=== PATIENT | female | born 1985 | race Caucasian/White ===

== ENCOUNTER 2017-03-31 23:28 | Inpatient (IN) | payer BC ==
[~2017-03-31] VITALS: Ht 162.6 cm; Wt 80.3 kg
[~2017-03-31 23:28] MED LIST: IBUP600 PO; OXYC1SOL5 PO; PRENCAP10 PO
[2017-03-31 23:30] VITALS: BP 130/80; PULSE 106; RESP 16; TEMP 98; O2SAT 99
[2017-04-01] MEDS ORDERED: SODIUM CHLOR 0.9% 1000 ML INJ 1,000 ML IV ONE ×2 (00:15→01:00)
[2017-04-01] MEDS ORDERED: VANCOMYCIN INJ 1,150 MG in SODIUM CHLOR 0.9% 250 ML INJ 250 ML IV ONE (00:15)
[2017-04-01] MEDS ORDERED: PIPERACIL-TAZO 3.375 GM PREMIX 50 ML IV ONE (00:15)
[2017-04-01] MEDS ORDERED: KETOROLAC TROMETHAMINE 30 MG/ML (IVP) VIAL IV PUSH ONE (00:15)
[2017-04-01 00:42] LABS: AUTOMATED NEUTROPHIL # 13.5 TH/MM3 (1.8-7.7); BASOPHIL % 0.2 % (0.0-2.0); EOSINOPHIL # 0.2 TH/MM3 (0-0.4); EOSINOPHIL % 1.2 % (0.0-4.0); HEMATOCRIT 32.4 % (35.0-46.0); HEMO FLAGS DIFF FINAL; LYMPH % 12.3 % (9.0-44.0); LYMPHOCYTE # 2.2 TH/MM3 (1.0-4.8); MEAN CELL VOLUME 79.5 FL (80.0-100.0); MEAN CORPUSCULAR HEMOGLOBIN 26.7 PG (27.0-34.0); MEAN CORPUSCULAR HGB CONC 33.6 % (32.0-36.0); NEUT % 77.3 % (16.0-70.0); PLATELET COUNT 403 TH/MM3 (150-450); RED BLOOD COUNT 4.08 MIL/MM3 (4.00-5.30); RED CELL DISTRIBUTION WIDTH 18.2 % (11.6-17.2); WHITE BLOOD COUNT 17.4 TH/MM3 (4.0-11.0)
[2017-04-01 00:51] LABS: APTT (PATIENT) 27.6 SEC (24.3-30.1); PROTHROMBIN TIME - PATIENT 11.2 SEC (9.8-11.6)
[2017-04-01 00:59] LABS: ANION GAP 8 MEQ/L (5-15); BICARBONATE 27.5 MEQ/L (21.0-32.0); BLOOD UREA NITROGEN 9 MG/DL (7-18); CHLORIDE 104 MEQ/L (98-107); GLOMERULAR FILTRATION RATE 68 ML/MIN (>89); POTASSIUM 3.7 MEQ/L (3.5-5.1); SODIUM (NA) 139 MEQ/L (136-145)
--- NOTE | 2017-04-01 01:01 | PD ---
HPI Chief Complaint: Skin Problem Time Seen by Provider: 00:02 Travel History International Travel<30 days: No Contact w/Intl Traveler<30days: No Traveled to known affect area: No History of Present Illness HPI 31yo F with PMH of MRSA presents to the ED with c/o worsening infection in right labia that is now spreading to the suprapubic region. Pt states it started like a pimple on the right labia and it was there for 1 week before it started draining. Pt's mother is a physician and started her on septra 2 days ago and pt states that since being on it, the wound has spread and gotten worst. +Fever of 101F today at 7pm and she took ibuprofen. Denies any n/v, chest pain, sob, abdominal pain, dysuria, hematuria or vaginal discharge. Said she had MRSA once before. PFSH Past Medical History Medical other: Yes (MRSA) ?: Not LMP: 03/24/17 Past Surgical History Surgical History: No Previous Surgery Section: Yes Social History Alcohol Use: No Tobacco Use: No Substance Use: No Allergies-Medications (Allergen,Severity, Reaction): Coded Allergies: Benadryl (Unverified Allergy, Severe, Anaphylaxis, 04/01/17) iv benadryl Dilaudid (Verified Allergy, Severe, Anaphylaxis, 04/01/17) Ciprofloxacin (Verified Allergy, Unknown, Anaphylaxis, 04/01/17) Reported Meds & Prescriptions Reported Meds & Active Scripts Active Review of Systems Except as stated in HPI: all other systems reviewed are Neg Physical Exam Narrative GENERAL: 31yo F in mild distress. SKIN: Focused skin assessment warm/dry. HEAD: Atraumatic. Normocephalic. EYES: Pupils equal and round. No scleral icterus. No injection or drainage. CARDIOVASCULAR: Regular rate and rhythm. No murmur appreciated. RESPIRATORY: No accessory muscle use. Clear to auscultation. Breath sounds equal bilaterally. GASTROINTESTINAL: Abdomen soft, non-tender, nondistended. +Erythematous streaking pubic bone No crepitus. : +Right labia that is indurated and tender to palpation. No fluctuance. MUSCULOSKELETAL: No obvious deformities. No clubbing. No cyanosis. No edema. NEUROLOGICAL: Awake and alert. No obvious cranial nerve deficits. Motor grossly within normal limits. Normal speech. PSYCHIATRIC: Appropriate mood and affect; insight and judgment normal. Data Data Last Documented VS Vital Signs Date Time Temp Pulse Resp B/P Pulse Ox O2 Delivery O2 Flow Rate FiO2 03/31/17 23:30 98.0 106 16 130/80 99 Orders Complete Blood Count With Diff (04/01/17 00:10) Basic Metabolic Panel (Bmp) (04/01/17 00:10) Prothrombin Time / Inr (Pt) (04/01/17 00:10) Act Partial Throm Time (Ptt) (04/01/17 00:10) Lactic Acid Sepsis Protocol (04/01/17 00:10) Blood Culture (04/01/17 00:10) Bhcg Screen Qualitative (04/01/17 00:10) Ketorolac Inj (Toradol Inj) (04/01/17 00:15) Vancomycin Inj (Vancomycin Inj) (04/01/17 00:15) Piperacil-Tazo 3.375 Gm Premix (Zosyn 3. (04/01/17 00:15) Sodium Chlor 0.9% 1000 Ml Inj (Ns 1000 M (04/01/17 00:15) Sodium Chlor 0.9% 1000 Ml Inj (Ns 1000 M (04/01/17 01:00) Ct Abd/Pel W Iv Contrast(Rout) (04/01/17 ) Iohexol 350 Inj (Omnipaque 350 Inj) (04/01/17 03:21) Admit Order (Ed Use Only) (04/01/17 03:38) Labs Laboratory Tests Test 04/01/17 00:20 White Blood Count 17.4 TH/MM3 Red Blood Count 4.08 MIL/MM3 Hemoglobin 10.9 GM/DL Hematocrit 32.4 % Mean Corpuscular Volume 79.5 FL Mean Corpuscular Hemoglobin 26.7 PG Mean Corpuscular Hemoglobin 33.6 % Concent Red Cell Distribution Width 18.2 % Platelet Count 403 TH/MM3 Mean Platelet Volume 7.2 FL Neutrophils (%) (Auto) 77.3 % Lymphocytes (%) (Auto) 12.3 % Monocytes (%) (Auto) 9.0 % Eosinophils (%) (Auto) 1.2 % Basophils (%) (Auto) 0.2 % Neutrophils # (Auto) 13.5 TH/MM3 Lymphocytes # (Auto) 2.2 TH/MM3 Monocytes # (Auto) 1.6 TH/MM3 Eosinophils # (Auto) 0.2 TH/MM3 Basophils # (Auto) 0.0 TH/MM3 CBC Comment DIFF FINAL Differential Comment Prothrombin Time 11.2 SEC Prothromb Time International 1.0 RATIO Ratio Activated Partial 27.6 SEC Thromboplast Time Sodium Level 139 MEQ/L Potassium Level 3.7 MEQ/L Chloride Level 104 MEQ/L Carbon Dioxide Level 27.5 MEQ/L Anion Gap 8 MEQ/L Blood Urea Nitrogen 9 MG/DL Creatinine 0.97 MG/DL Estimat Glomerular Filtration 68 ML/MIN Rate Random Glucose 115 MG/DL Lactic Acid Level 1.6 mmol/L Calcium Level 8.7 MG/DL Beta HCG, Qualitative LESS THAN 1 MIU/ML MDM Medical Decision Making Medical Screen Exam Complete: Yes Emergency Medical Condition: Yes Differential Diagnosis Vulvar Cellulitis vs. abscess vs. Ryan's gangrene Narrative Course 31yo F with right vulva infection that is spreading and worst on antibiotics. Pt is well appearing but wound is worsening quickly. Pt afebrile here but had fever at home and is mildly tachycardic here. Pt given NS IVF, vancomycin and zosyn. Also given toradol for pain. Labs reviewed, leukocytosis at 17.4. Normal lactic acid. CTa/p showed very edematous right vulva but no obvious abscess. Discussed with OB hospitalist Dr. Lal and accepted to his service. He recommends drainage of vulvar abscess in the OR. Critical Care Narrative Aggregate critical care time was 50 minutes. Time to perform other separately billable procedures was not included in the critical care time. My time did not include minutes spent treating any other patients simultaneously or on activities that did not directly contribute to the patient's treatment. The services I provided to this patient were to treat and/or prevent clinically significant deterioration that could result in: cardiovascular collapse or . I provided critical care services requiring my management, as noted below: Chart data review, documentation time, medication orders and management, vital sign assessments/reviewing monitor data, ordering and reviewing lab tests, ordering and interpreting/reviewing x- rays and diagnostic studies, care of the patient and discussion of the patient with the admitting physicians. Diagnosis Primary Impression: Sepsis Qualified Code: A41.9 - Sepsis, due to unspecified organism Admitting Information Admitting Physician Requests: Admit Rona Wen DO Apr 01, 2017 01:00
[2017-04-01 01:05] LABS: BHCG SCREEN QUALITATIVE LESS THAN 1 MIU/ML (0-5)
[2017-04-01] MEDS ORDERED: IOHEXOL 350 MG/ML 10 ML VIAL (for RAD DIAG) IV ONE (03:21)
--- NOTE | 2017-04-01 03:45 | RADRPT ---
EXAM DATE/TIME: 04/01/2017 03:16 [facility] COMPARISON: No previous studies available for comparison. INDICATIONS : Swelling to right labia. Fever. Evaluate for abscess. IV CONTRAST: 97 cc Omnipaque 350 (iohexol) IV ORAL CONTRAST: No oral contrast ingested. RADIATION DOSE: 9.65 CTDIvol (mGy) MEDICAL HISTORY : MRSA. SURGICAL HISTORY : section. ENCOUNTER: Initial ACUITY: 2 weeks PAIN SCALE: 7/10 LOCATION: Right pelvis TECHNIQUE: Volumetric scanning of the abdomen and pelvis was performed. Using automated exposure control and ad justment of the mA and/or kV according to patient size, radiation dose was kept as low as reasonably achievable to obtain optimal diagnostic quality images. FINDINGS: LOWER LUNGS: The visualized lower lungs are clear. LIVER: Homogeneous density without lesion. There is no dilation of the biliary tree. No calcified gallston es. SPLEEN: Normal size without lesion. PANCREAS: Within normal limits. KIDNEYS: Normal in size and shape. There is no mass, stone or hydronephrosis. ADRENAL GLANDS: Within normal limits. VASCULAR: There is no aortic aneurysm. BOWEL/MESENTERY: The stomach, small bowel, and colon demonstrate no acute abnormality. There is no free intraperitone al air or fluid. ABDOMINAL WALL: Within normal limits. There is marked swelling of the right labia without any deep abscess or drainab le fluid collection other than very edematous tissue just underneath the skin. RETROPERITONEUM: There is no lymphadenopathy. BLADDER: No wall thickening or mass. REPRODUCTIVE: Within normal limits. IUD in place INGUINAL: There is no lymphadenopathy or hernia. MUSCULOSKELETAL: Within normal limits for patient age. CONCLUSION: Very edematous skin and soft tissue around the right labia without any deep collections or obvious ab scess. Few small lymph nodes in the right inguinal region Karthik Perales MD on April 01, 2017 at 3:42 Board Certified Radiologist. This report was verified electronically.
[2017-04-01] MEDS ORDERED: MORPHINE SULFATE 4 MG/ML INJ IV PRN (04:00)
[2017-04-01] MEDS ORDERED: SODIUM CHLORIDE 0.9% FLUSH 5 ML FLUSH IV FLUSH PRN (04:00)
[2017-04-01] MEDS ORDERED: ACETAMINOPHEN 325 MG TAB PO PRN (04:00)
[2017-04-01] MEDS ORDERED: ONDANSETRON HCL 4 MG/2 ML VIAL IV PRN (04:00)
--- NOTE | 2017-04-01 04:04 | HHI.HP ---
HPI Chief Complaint Vulvar pain and swelling Date Seen: Apr 01, 2017 Travel History International Travel<30 Days: No Contact w/Intl Traveler<30Days: No Known Affected Area: No History of Present Illness HPI The patient is 31-year-old white female previous who presents with increasing pain in the right labia and vulvar area, states she states that she thought she had an ingrown hair there about a week ago and didn't think anything about that then within a few days started to become comfortable as well and then he just in the last couple days is really swollen a lot become a lot more tender. Patient's mother is a physician and she called her in some Sept to take and the sits mass and she says that really hasn't helped much. She had a temperature 101 deg today and states that this area was spontaneously draining some pus fluid when she can squeezed one and some of the last day or 2 Para: 1 : 1 History Obstetric History Obstetric History [address] Desir Past Surgical History Narrative Surgical 1 2 ankle surgeries is a teenager Tonsillectomy Family History Family History: Negative Social History Alcohol Use: No Tobacco Use: No Substance Abuse: No Allergies-Medications (Allergen,Severity, Reaction): Coded Allergies: Benadryl (Unverified Allergy, Severe, Anaphylaxis, 04/01/17) iv benadryl Dilaudid (Verified Allergy, Severe, Anaphylaxis, 04/01/17) Ciprofloxacin (Verified Allergy, Unknown, Anaphylaxis, 04/01/17) Review of Systems General / Constitutional: No: Fever, Weight Gain, Chills, Other Eyes: No: Diploplia, Blurred Vision, Visual changes, Pain, Photophobia HENT: No: Headaches, Vertigo, Lightheadedness Cardiovascular: No: Irregular Rhythm, Chest Pain or Discomfort, Palpitations, Tachycardia, Syncope, Varicosities, Edema, Cyanosis Respiratory: No: Cough, Short of Breath, Other Gastrointestinal: No: Nausea, Vomiting, Diarrhea Genitourinary: No: Decreased Urinary Output, Oliguria Musculoskeletal: No: Limited ROM, Weakness, Cramping, Edema, Pain Skin: No Rash, No Itching, No Dryness, No Lumps, No Change in Pigmentation, No Change in Nails, No Alopecia, No Lesions Neurologic: No: Weakness, Dizziness, Syncope, Focal Abnormalities, Coordination Problem, Headache, Slurred Speech, Seizures Psychiatric: No: Depression, Suicidal Ideations, Homicidal Ideation Endocrine: No: Heat Intolerance, Cold Intolerance, Polydipsia, Polyuria, Other Physical Exam Vital Signs Date Time Temp Pulse Resp B/P Pulse Ox O2 Delivery O2 Flow Rate FiO2 03/31/17 23:30 98.0 106 16 130/80 99 Narrative GENERAL: Well-nourished, well-developed patient. SKIN: Warm and dry. HEAD: Normocephalic and atraumatic. EYES: No scleral icterus. No injection or drainage. ENT: No nasal drainage noted. Mucous membranes pink. Airway patent. NECK: Supple, trachea midline. No JVD. CARDIOVASCULAR: Regular rate and rhythm without murmurs, gallops, or rubs. RESPIRATORY: Breath sounds equal bilaterally. No accessory muscle use. BREASTS: Bilateral exam showed no masses , no retractions, no nipple discharge. ABDOMEN/GI: Abdomen soft, non-tender, bowel sounds present, no rebound, no guarding Gravid to [-] weeks size Fundal Height: [-] GENITOURINARY: External Genitalia: Right labia vulvar markedly enlarged erythematous tender indurated Remainder pelvic exam deferred due to the pain related to vulvar problem EXTREMITIES: No cyanosis or edema. BACK: Nontender without obvious deformity. No CVA tenderness. NEUROLOGICAL: Awake and alert. Motor and sensory grossly within normal limits. Five out of 5 muscle strength in all muscle groups. Normal speech. Data Data Orders Complete Blood Count With Diff (04/01/17 00:10) Basic Metabolic Panel (Bmp) (04/01/17 00:10) Prothrombin Time / Inr (Pt) (04/01/17 00:10) Act Partial Throm Time (Ptt) (04/01/17 00:10) Lactic Acid Sepsis Protocol (04/01/17 00:10) Blood Culture (04/01/17 00:10) Bhcg Screen Qualitative (04/01/17 00:10) Ketorolac Inj (Toradol Inj) (04/01/17 00:15) Vancomycin Inj (Vancomycin Inj) (04/01/17 00:15) Piperacil-Tazo 3.375 Gm Premix (Zosyn 3. (04/01/17 00:15) Sodium Chlor 0.9% 1000 Ml Inj (Ns 1000 M (04/01/17 00:15) Sodium Chlor 0.9% 1000 Ml Inj (Ns 1000 M (04/01/17 01:00) Ct Abd/Pel W Iv Contrast(Rout) (04/01/17 ) Iohexol 350 Inj (Omnipaque 350 Inj) (04/01/17 03:21) Admit Order (Ed Use Only) (04/01/17 03:38) Labs CT scan of the area shows what appears to be an abscess with internal fluid collection and enlargement of the area of the right vulva and labia Laboratory Tests Test 04/01/17 00:20 White Blood Count 17.4 Red Blood Count 4.08 Hemoglobin 10.9 Hematocrit 32.4 Mean Corpuscular Volume 79.5 Mean Corpuscular Hemoglobin 26.7 Mean Corpuscular Hemoglobin 33.6 Concent Red Cell Distribution Width 18.2 Platelet Count 403 Mean Platelet Volume 7.2 Neutrophils (%) (Auto) 77.3 Lymphocytes (%) (Auto) 12.3 Monocytes (%) (Auto) 9.0 Eosinophils (%) (Auto) 1.2 Basophils (%) (Auto) 0.2 Neutrophils # (Auto) 13.5 Lymphocytes # (Auto) 2.2 Monocytes # (Auto) 1.6 Eosinophils # (Auto) 0.2 Basophils # (Auto) 0.0 CBC Comment DIFF FINAL Differential Comment Prothrombin Time 11.2 Prothromb Time International 1.0 Ratio Activated Partial 27.6 Thromboplast Time Sodium Level 139 Potassium Level 3.7 Chloride Level 104 Carbon Dioxide Level 27.5 Anion Gap 8 Blood Urea Nitrogen 9 Creatinine 0.97 Estimat Glomerular Filtration 68 Rate Random Glucose 115 Lactic Acid Level 1.6 Calcium Level 8.7 Beta HCG, Qualitative LESS THAN 1 Date/Time Procedure Status Source Growth 04/01/17 00:20 Aerobic Blood Culture Received Blood Peripheral Pending 04/01/17 00:20 Anaerobic Blood Culture Received Blood Peripheral Pending Assessment/Plan Assessment and Plan Right vulvar and labial abscess, plan to place patient on hospital of IV antibiotics of vancomycin and Zosyn and then later today we'll have the ENDING MACHINE OPERATOR doctor concrete grinder operator to take the patient to operating room for I&D of the abscess Todd Naqvi II, MD Apr 01, 2017 04:04
[2017-04-01] MEDS: LACTATED RINGER'S 1000 ML INJ 1,000 ML IV SCH ×3 (05:16→21:27)
[2017-04-01] MEDS: ACETAMINOPHEN 1000 MG/100 ML VIAL IV SCH ×4 (05:16→21:24)
[2017-04-01 05:36] VITALS: BP 113/66; PULSE 96; RESP 16; TEMP 98.4; O2SAT 98
[2017-04-01] MEDS: KETOROLAC TROMETHAMINE 60 MG/2 ML (IM) VIAL IM PRN (06:11)
[2017-04-01 07:30] VITALS: BP 117/53; PULSE 95; RESP 20; TEMP 98.3; O2SAT 99
[2017-04-01] MEDS: ENOXAPARIN SODIUM 40 MG/0.4 ML SYRINGE SQ SCH (09:00)
[2017-04-01] MEDS: SODIUM CHLORIDE 0.9% FLUSH 5 ML FLUSH IV FLUSH SCH ×2 (09:00→21:00)
[2017-04-01] MEDS: PIPERACIL-TAZO 3.375 GM PREMIX 50 ML IV SCH ×3 (10:02→23:37)
[2017-04-01] MEDS ORDERED: FAMOTIDINE 20 MG/2 ML VIAL ONE (11:05)
[2017-04-01] MEDS ORDERED: MIDAZOLAM HCL 2 MG/2 ML VIAL ONE (11:05)
[2017-04-01] MEDS ORDERED: BUPIVACAINE HCL PF 0.5% 30 ML VIAL ONE (11:41)
[2017-04-01] MEDS ORDERED: DO NOT ADM ANY ANTICOAGULANT DRUGS PRN (12:00)
[2017-04-01] MEDS ORDERED: oxyCODONE/ACETAMINOPHEN 5 MG/325 MG TAB PO PRN (12:00)
[2017-04-01] MEDS ORDERED: KETOROLAC TROMETHAMINE 60 MG/2 ML (IM) VIAL IM ONE (12:00)
[2017-04-01] MEDS ORDERED: ONDANSETRON HCL 4 MG/2 ML VIAL IV PUSH PRN (12:00)
[2017-04-01] MEDS ORDERED: PROPOFOL 200 MG/20 ML AMP IV ONE (12:00)
[2017-04-01] MEDS ORDERED: ONDANSETRON HCL 4 MG/2 ML VIAL IV PUSH ONE (12:00)
--- NOTE | 2017-04-01 13:33 | MP ---
cc: AJ BARAHONA M.D., STEPHEN J. M.D. DATE OF SURGERY 04/01/2017 PREOPERATIVE DIAGNOSIS Right labial abscess/cellulitis. PROCEDURE Exam under anesthesia, incision and drainage of right labial abscess. POSTOPERATIVE DIAGNOSIS Exam under anesthesia, incision and drainage of right labial abscess. SURGEON MD Frantz ANESTHESIA General with LMA and local infiltration of 0.25% percent plain Marcaine x 10 cc. OPERATIVE FINDINGS The patient had a large edematous right labia with his some small pockets of fluctuance, superficially one on the right lateral aspect posterior to the labia major and then in the mid portion of the labia. There is no defined significant pocket of purulence. Cultures were taken of the drainage. INDICATIONS FOR PROCEDURE The patient presented to the emergency department with increasing pain and swelling of the right labia. The patient had elevated white blood cell count and low grade fever. CT scan revealed a markedly edematous and indurated right labia. No specific focal abscess cavity was identified. Physical exam revealed two superficial areas that were consistent with purulence and recommendation was to proceed with incision and drainage and exam under anesthesia. The patient has been on vancomycin and piperacillin /tazobactam for the last 12 hours. PROCEDURE The patient was taken to the operating room n stable condition, underwent general anesthesia with LMA placement. She was carefully positioned in dorsolithotomy position using candy-cane stirrups. Sequentials placed on lower extremities. She was prepped and draped. A time-out was then conducted and agreed by all present in the room. Exam revealed a large edematous right labia. There was a focal area of purulence on the posterior lower lateral aspect which was opened with a #11 blade. A small amount of purulence was expressed and this was cultured and sent for anaerobic and aerobic cultures. The midportion of the labia was then incised with a #11 blade and significant watery drainage was expressed but no obvious purulence. Bleeding was minimal. The edges of the incision site were injected with 0.25% percent plain Marcaine at the completion of case. Irrigation of the labia with copious normal saline was conducted and exploration of the wound sites were conducted revealing no significant purulence. At the completion of the case there was slight oozing from each incision site. A dressing was applied using a peripad. The patient was extubated, taken to recovery room on room air. The final count was correct. MD GELY Willis/JACY /12:13 PM /1:20 PM
[2017-04-01] MEDS: VANCOMYCIN INJ 1,500 MG in SODIUM CHLORID 0.9% 500 ML INJ 500 ML IV SCH (15:14)
[2017-04-01 15:50] VITALS: BP 123/63; PULSE 97; RESP 20; TEMP 98.3; O2SAT 99
[2017-04-01] MEDS: oxyCODONE/ACETAMINOPHEN 5 MG/325 MG TAB PO PRN ×2 (16:48→23:56)
[2017-04-01 16:50] VITALS: TEMP 99.7
[2017-04-01 20:00] VITALS: BP 115/62; PULSE 103; RESP 21; TEMP 98.8; O2SAT 99
[2017-04-02] VITALS: BP 116/53; PULSE 89; RESP 20; TEMP 97.1; O2SAT 98
[2017-04-02] MEDS: VANCOMYCIN INJ 1,500 MG in SODIUM CHLORID 0.9% 500 ML INJ 500 ML IV SCH ×2 (03:04→15:03)
[2017-04-02] MEDS: ACETAMINOPHEN 1000 MG/100 ML VIAL IV SCH ×3 (03:07→21:51)
[2017-04-02 04:00] VITALS: BP 98/53; PULSE 79; RESP 19; TEMP 97.3; O2SAT 98
[2017-04-02] MEDS: LACTATED RINGER'S 1000 ML INJ 1,000 ML IV SCH ×3 (04:13→23:45)
[2017-04-02 06:48] LABS: AUTOMATED NEUTROPHIL # 9.8 TH/MM3 (1.8-7.7); BASOPHIL % 0.2 % (0.0-2.0); EOSINOPHIL # 0.2 TH/MM3 (0-0.4); EOSINOPHIL % 1.6 % (0.0-4.0); HEMATOCRIT 26.8 % (35.0-46.0); HEMO FLAGS DIFF FINAL; LYMPH % 13.5 % (9.0-44.0); LYMPHOCYTE # 1.7 TH/MM3 (1.0-4.8); MEAN CELL VOLUME 80.7 FL (80.0-100.0); MEAN CORPUSCULAR HEMOGLOBIN 26.5 PG (27.0-34.0); MEAN CORPUSCULAR HGB CONC 32.8 % (32.0-36.0); MONO % 7.6 % (0.0-8.0); NEUT % 77.1 % (16.0-70.0); PLATELET COUNT 297 TH/MM3 (150-450); RED BLOOD COUNT 3.32 MIL/MM3 (4.00-5.30); RED CELL DISTRIBUTION WIDTH 18.7 % (11.6-17.2); WHITE BLOOD COUNT 12.8 TH/MM3 (4.0-11.0)
[2017-04-02 07:31] LABS: BICARBONATE 26.9 MEQ/L (21.0-32.0); POTASSIUM 3.8 MEQ/L (3.5-5.1)
[2017-04-02 07:50] VITALS: BP 119/65; PULSE 90; RESP 20; TEMP 98; O2SAT 97
--- NOTE | 2017-04-02 08:05 | HHI.OB ---
Subjective Post Operative Day: 1 Remarks pt OOB , urinating ok, on IV piperacillin/vanco, afebrile, MRSA neg Objective Vitals/I&O Vital Signs Date Time Temp Pulse Resp B/P Pulse Ox O2 Delivery O2 Flow Rate FiO2 04/02/17 04:00 97.3 79 19 98/53 98 04/02/17 00:00 97.1 89 20 116/53 98 04/01/17 20:00 98.8 103 21 115/62 99 04/01/17 16:50 99.7 04/01/17 15:50 98.3 97 20 123/63 99 04/01/17 13:25 98.5 81 16 129/68 98 Room Air 04/01/17 13:15 80 16 121/60 98 Room Air 04/01/17 13:00 82 15 128/63 97 Room Air 04/01/17 12:45 87 15 121/59 100 Nasal Cannula 2 04/01/17 12:30 89 14 122/57 99 Nasal Cannula 2 04/01/17 12:15 92 14 118/59 100 Nasal Cannula 3 04/01/17 12:00 97.6 100 12 120/57 98 Nasal Cannula 3 Result Diagram: 04/02/1759 04/02/17 0559 Objective Remarks GENERAL: Well-nourished, well-developed patient. CARDIOVASCULAR: Regular rate and rhythm without murmurs, gallops, or rubs. RESPIRATORY: Breath sounds equal bilaterally. No accessory muscle use. ABDOMEN/GI: Abdomen soft, non-tender, bowel sounds present. GENITOURINARY: Light bleeding., rt labia majora swelling, erythema, no fluctuance, no LN EXTREMITIES: No cyanosis or edema, non-tender, without signs of DVT. Medications and IVs Current Medications Medications (Trade) Dose Ordered Sig/Gurmeet Route Start Time Stop Time Status Last Admin (NS Flush) 2 ml UNSCH PRN IV FLUSH 04/01/17 04:00 (NS Flush) 2 ml BID IV FLUSH 04/01/17 09:00 04/01/17 21:00 (Toradol Inj) 30 mg Q6H PRN IM 04/01/17 04:00 04/06/17 03:59 04/01/17 06:11 (Zofran Inj) 4 mg Q6H PRN IV 04/01/17 04:00 Enoxaparin Sodium 40 mg 40 mg Q24H SQ 04/01/17 09:00 Piperacillin Sod/ Tazobactam Sod 50 ml @ 100 mls/hr Q8H IV 04/01/17 08:00 04/01/17 23:37 Vancomycin HCl 1500 mg/Sodium Chloride 515 ml @ 257.5 mls/ hr Q12H IV 04/01/17 14:00 04/02/17 03:04 (Lr 1000 ml Inj) 1,000 ml @ 115 mls/hr Q8H42M IV 04/01/17 04:15 04/01/17 12:36 (Ofirmev Inj) 1,000 mg Q6H IV 04/01/17 04:00 04/02/17 03:07 (Percocet 5-325 Mg) 1 tab Q4H PRN PO 04/01/17 12:00 04/01/17 23:56 (Percocet 5-325 Mg) 2 tab Q4H PRN PO 04/01/17 12:00 Miscellaneous Information ALL NURSING DEPARTME... UNSCH PRN .XX 04/01/17 12:00 04/02/17 11:59 Assessment/Plan Assessment and Plan Right vulvar and labial abscess, s/p I&D POD #1 continue IV antibx one more day, may shower sitz baths at home Discharge Planning in am Attending Attestation pt seen by Jana Perry MD Apr 02, 2017 08:05
[2017-04-02] MEDS: oxyCODONE/ACETAMINOPHEN 5 MG/325 MG TAB PO PRN ×3 (08:20→22:57)
[2017-04-02] MEDS: PIPERACIL-TAZO 3.375 GM PREMIX 50 ML IV SCH ×2 (08:20→20:00)
[2017-04-02] MEDS: SODIUM CHLORIDE 0.9% FLUSH 5 ML FLUSH IV FLUSH SCH ×2 (09:00→21:00)
[2017-04-02] MEDS: ENOXAPARIN SODIUM 40 MG/0.4 ML SYRINGE SQ SCH (09:00)
[2017-04-02 11:30] VITALS: BP 121/72; PULSE 86; RESP 20; TEMP 96.9; O2SAT 98
[2017-04-02 15:50] VITALS: BP 133/92; PULSE 102; RESP 20; TEMP 98.2; O2SAT 100
[2017-04-02] MEDS ORDERED: VANCOMYCIN INJ 1,500 MG in SODIUM CHLORID 0.9% 500 ML INJ 500 ML IV SCH (18:00)
[2017-04-02 20:00] VITALS: BP 130/58; PULSE 88; RESP 20; TEMP 96.3; O2SAT 100
[2017-04-03] VITALS: BP 107/55; PULSE 80; RESP 20; TEMP 96.7; O2SAT 97
[2017-04-03 04:00] VITALS: BP 111/53; PULSE 81; RESP 20; TEMP 96.2; O2SAT 98
[2017-04-03] MEDS: PIPERACIL-TAZO 3.375 GM PREMIX 50 ML IV SCH ×3 (04:25→20:29)
[2017-04-03] MEDS: ACETAMINOPHEN 1000 MG/100 ML VIAL IV SCH ×5 (04:27→21:04)
[2017-04-03] MEDS: oxyCODONE/ACETAMINOPHEN 5 MG/325 MG TAB PO PRN ×2 (04:30→13:50)
[2017-04-03] MEDS: VANCOMYCIN INJ 1,500 MG in SODIUM CHLORID 0.9% 500 ML INJ 500 ML IV SCH ×2 (05:26→18:00)
[2017-04-03 06:23] LABS: AUTOMATED NEUTROPHIL # 6.4 TH/MM3 (1.8-7.7); BASOPHIL % 0.3 % (0.0-2.0); EOSINOPHIL # 0.2 TH/MM3 (0-0.4); EOSINOPHIL % 2.4 % (0.0-4.0); HEMATOCRIT 27.6 % (35.0-46.0); HEMO FLAGS DIFF FINAL; LYMPH % 21.2 % (9.0-44.0); MEAN CELL VOLUME 80.3 FL (80.0-100.0); MEAN CORPUSCULAR HEMOGLOBIN 26.6 PG (27.0-34.0); MEAN CORPUSCULAR HGB CONC 33.2 % (32.0-36.0); NEUT % 69.1 % (16.0-70.0); PLATELET COUNT 358 TH/MM3 (150-450); RED BLOOD COUNT 3.44 MIL/MM3 (4.00-5.30); WHITE BLOOD COUNT 9.2 TH/MM3 (4.0-11.0)
[2017-04-03 08:00] VITALS: BP 109/56; PULSE 72; RESP 16; TEMP 97.3; O2SAT 98
[2017-04-03] MEDS: LACTATED RINGER'S 1000 ML INJ 1,000 ML IV SCH ×2 (08:27→15:21)
--- NOTE | 2017-04-03 08:43 | HHI.PR ---
TELECOMMUNICATIONS ENGINEER Note Note Laboratory Tests Test 04/01/17 04/02/17 04/03/17 00:20 05:59 05:47 White Blood Count 17.4 TH/MM3 12.8 TH/MM3 (4.0-11.0) (4.0-11.0) Hemoglobin 10.9 GM/DL 8.8 GM/DL 9.2 GM/DL (11.6-15.3) (11.6-15.3) (11.6-15.3) Hematocrit 32.4 % 26.8 % 27.6 % (35.0-46.0) (35.0-46.0) (35.0-46.0) Mean Corpuscular Volume 79.5 FL (80.0-100.0) Mean Corpuscular Hemoglobin 26.7 PG 26.5 PG 26.6 PG (27.0-34.0) (27.0-34.0) (27.0-34.0) Red Cell Distribution Width 18.2 % 18.7 % 18.0 % (11.6-17.2) (11.6-17.2) (11.6-17.2) Neutrophils (%) (Auto) 77.3 % 77.1 % (16.0-70.0) (16.0-70.0) Monocytes (%) (Auto) 9.0 % (0.0-8.0) Neutrophils # (Auto) 13.5 TH/MM3 9.8 TH/MM3 (1.8-7.7) (1.8-7.7) Monocytes # (Auto) 1.6 TH/MM3 1.0 TH/MM3 (0-0.9) (0-0.9) Estimat Glomerular Filtration 68 ML/MIN (>89) Rate Random Glucose 115 MG/DL (74-106) Red Blood Count 3.32 MIL/MM3 3.44 MIL/MM3 (4.00-5.30) (4.00-5.30) Chloride Level 108 MEQ/L (98-107) Blood Urea Nitrogen 5 MG/DL (7-18) Calcium Level 7.5 MG/DL (8.5-10.1) HD#3, MRSA positive right labial abscess/cellulitis. Pain is manageable ,Afebrile, less swelling Vital Signs Date Time Temp Pulse Resp B/P Pulse Ox O2 Delivery O2 Flow Rate FiO2 04/03/17 08:00 97.3 72 16 109/56 98 04/03/17 05:47 19 04/03/17 04:59 20 04/03/17 04:00 96.2 81 20 111/53 98 04/03/17 00:00 96.7 80 20 107/55 97 04/02/17 20:00 96.3 88 20 130/58 100 04/02/17 15:50 98.2 102 20 133/92 100 04/02/17 11:30 96.9 86 20 121/72 98 EXAM: AVSS. Lungs : CTA Abd. : soft ,nt, Pelvic: less erythema and induration from yesterday,no drainage. Ext: no C/C/E. A+P: 1. MRSA positive labial cellulitis, TRENA/sensitivities are pending. Normal WBC, afebrile. patient is improving but is aware of the need for continous IV vancomycin. Plan for discharge possibly thursday on Bactrim DS x 14 days. Case d/w Dr Oliveros who is covering this weekend Karthik Landry MD Apr 03, 2017 08:43
[2017-04-03] MEDS: SODIUM CHLORIDE 0.9% FLUSH 5 ML FLUSH IV FLUSH SCH ×2 (09:00→21:00)
[2017-04-03 12:00] VITALS: BP 116/76; PULSE 78; RESP 16; TEMP 96.9; O2SAT 99
[2017-04-03 16:00] VITALS: BP 119/81; PULSE 79; RESP 18; TEMP 98; O2SAT 98
[2017-04-03] MEDS: KETOROLAC TROMETHAMINE 60 MG/2 ML (IM) VIAL IM PRN (16:01)
[2017-04-03 20:04] VITALS: BP 118/66; PULSE 69; RESP 16; TEMP 97.4; O2SAT 99
[2017-04-04] VITALS: BP 113/59; PULSE 63; RESP 15; TEMP 96.5; O2SAT 99
[2017-04-04] MEDS: LACTATED RINGER'S 1000 ML INJ 1,000 ML IV SCH ×2 (01:51→19:15)
[2017-04-04 04:15] VITALS: BP 109/57; PULSE 78; RESP 16; TEMP 96.6; O2SAT 99
[2017-04-04] MEDS: PIPERACIL-TAZO 3.375 GM PREMIX 50 ML IV SCH ×3 (04:24→21:54)
[2017-04-04] MEDS: oxyCODONE/ACETAMINOPHEN 5 MG/325 MG TAB PO PRN ×2 (04:24→14:39)
[2017-04-04] MEDS: ACETAMINOPHEN 1000 MG/100 ML VIAL IV SCH ×4 (04:28→21:52)
[2017-04-04] MEDS: VANCOMYCIN INJ 1,500 MG in SODIUM CHLORID 0.9% 500 ML INJ 500 ML IV SCH ×2 (05:39→16:54)
[2017-04-04] MEDS: SODIUM CHLORIDE 0.9% FLUSH 5 ML FLUSH IV FLUSH SCH ×2 (09:00→21:00)
[2017-04-04 12:00] VITALS: BP 106/61; PULSE 76; RESP 15; TEMP 96.8; O2SAT 99
[2017-04-04 16:00] VITALS: BP 114/59; PULSE 83; RESP 15; TEMP 97; O2SAT 98
--- NOTE | 2017-04-04 16:07 | HHI.PR ---
Subjective Remarks Doing well , swelling is down but still with significnat pain Can I take motrin I do not like the percocet Objective Vital Signs Date Time Temp Pulse Resp B/P Pulse Ox O2 Delivery O2 Flow Rate FiO2 04/04/17 12:00 96.8 76 15 106/61 99 04/04/17 05:08 18 04/04/17 05:08 18 04/04/17 04:15 96.6 78 16 109/57 99 04/04/17 00:00 96.5 63 15 113/59 99 04/03/17 20:04 97.4 69 16 118/66 99 I/O 04/03/17 04/03/17 04/03/17 04/04/17 04/04/17 04/04/17 07:00 15:00 23:00 07:00 15:00 23:00 Intake Total 152 ml 720 ml 720 ml 480 ml Balance 152 ml 720 ml 720 ml 480 ml Intake Oral 720 ml 720 ml 480 ml IV Total 152 ml # Voids 1 3 4 # Bowel Movements 0 Result Diagram: 04/03/17 0547 04/02/17 0559 Objective Remarks Chest is clear CV RRR Abd is soft and NT. Pelvic...Right vulva is hard and swollen and quite tender. Not draining at all Ext no CCE Assessment and Plan Assessment and Plan Right labial abscess/cellulitis with MRSA Will continue both Abs now as it is not improving as quickly as I would expect. The bactrim her mom ordered should have taken care of this as it is sensitive to bactrim so I wonder about her immune status. This problem developed quickly on the bactrim which I would not expect. Will check a FBS and HIV. Discussed breifly with ID and will continue the IV Abs for several more days and will also put warm soaks to vulva. Anemia.. will continue the Fe. Kati Oliveros MD Apr 04, 2017 16:07
[2017-04-04] MEDS ORDERED: KETOROLAC TROMETHAMINE 30 MG/ML (IVP) VIAL IV PUSH ONE (17:45)
[2017-04-04] MEDS: KETOROLAC TROMETHAMINE 60 MG/2 ML (IM) VIAL IM PRN (18:22)
[2017-04-04 20:00] VITALS: BP 115/69; PULSE 86; RESP 18; TEMP 97; O2SAT 98
[2017-04-04] MEDS: IBUPROFEN 600 MG TAB PO SCH (21:53)
[2017-04-05] VITALS: BP 106/70; PULSE 72; RESP 17; TEMP 97.8; O2SAT 99
[2017-04-05] MEDS: LACTATED RINGER'S 1000 ML INJ 1,000 ML IV SCH ×3 (03:57→20:39)
[2017-04-05 04:00] VITALS: BP 105/55; PULSE 64; RESP 18; TEMP 97; O2SAT 97
[2017-04-05] MEDS: PIPERACIL-TAZO 3.375 GM PREMIX 50 ML IV SCH ×3 (04:21→20:37)
[2017-04-05] MEDS: ACETAMINOPHEN 1000 MG/100 ML VIAL IV SCH ×4 (04:22→20:38)
[2017-04-05] MEDS: VANCOMYCIN INJ 1,500 MG in SODIUM CHLORID 0.9% 500 ML INJ 500 ML IV SCH ×2 (05:35→17:59)
[2017-04-05] MEDS: IBUPROFEN 600 MG TAB PO SCH ×3 (05:56→20:39)
[2017-04-05] MEDS: SODIUM CHLORIDE 0.9% FLUSH 5 ML FLUSH IV FLUSH SCH ×2 (09:00→20:38)
[2017-04-05 09:30] VITALS: BP 111/67; PULSE 79; RESP 16; TEMP 96.2; O2SAT 99
[2017-04-05 13:00] VITALS: BP 110/59; PULSE 71; RESP 15; TEMP 96.1; O2SAT 99
[2017-04-05 16:00] VITALS: BP 125/71; PULSE 74; RESP 16; O2SAT 97
--- NOTE | 2017-04-05 19:36 | HHI.PR ---
Subjective Remarks Doing better today. Pain is less. How long do I have to stay?? Objective Vital Signs Date Time Temp Pulse Resp B/P Pulse Ox O2 Delivery O2 Flow Rate FiO2 04/05/17 16:00 74 16 125/71 97 04/05/17 13:00 96.1 71 15 110/59 99 04/05/17 09:30 96.2 79 16 111/67 99 04/05/17 05:51 19 04/05/17 04:00 97.0 64 18 105/55 97 04/05/17 00:00 97.8 72 17 106/70 99 04/04/17 23:45 19 04/04/17 20:00 97.0 86 18 115/69 98 I/O 04/04/17 04/04/17 04/04/17 04/05/17 04/05/17 04/05/17 07:00 15:00 23:00 07:00 15:00 23:00 Intake Total 720 ml 480 ml 480 ml 654 ml 1000 ml Balance 720 ml 480 ml 480 ml 654 ml 1000 ml Intake Oral 720 ml 480 ml 480 ml 480 ml 1000 ml IV Total 174 ml # Voids 3 4 2 1 4 # Bowel Movements 0 0 0 Result Diagram: 04/03/17 0547 04/02/17 0559 Objective Remarks Abd is soft and NT. Pelvic...Right vulva is lesss hard, swollen and tender. Not draining at all. She has a warm pad there. Ext no CCE Assessment and Plan Assessment and Plan Right labial abscess/cellulitis with MRSA Will continue both Abs now as it is not improving as quickly as I would expect. The hemoglobin A1C and HIV labs are pending This problem developed quickly on the bactrim which I would not expect. Discussed briefly with ID and will continue the IV Abs for several more days and will also put warm soaks to vulva. The warm soaks seem to be helping the area is not as indurated as yesterday. Anemia.. will continue the Fe. I would not use venofer while the infection is active. Kati Oliveros MD Apr 05, 2017 19:35
--- NOTE | 2017-04-05 19:47 | HHI.PR ---
Subjective Remarks Having a headache, maybe from the vancomycin. She takes Fioricet at home. Objective Vital Signs Date Time Temp Pulse Resp B/P Pulse Ox O2 Delivery O2 Flow Rate FiO2 04/05/17 16:00 74 16 125/71 97 04/05/17 13:00 96.1 71 15 110/59 99 04/05/17 09:30 96.2 79 16 111/67 99 04/05/17 05:51 19 04/05/17 04:00 97.0 64 18 105/55 97 04/05/17 00:00 97.8 72 17 106/70 99 04/04/17 23:45 19 04/04/17 20:00 97.0 86 18 115/69 98 I/O 04/04/17 04/04/17 04/04/17 04/05/17 04/05/17 04/05/17 07:00 15:00 23:00 07:00 15:00 23:00 Intake Total 720 ml 480 ml 480 ml 654 ml 1000 ml Balance 720 ml 480 ml 480 ml 654 ml 1000 ml Intake Oral 720 ml 480 ml 480 ml 480 ml 1000 ml IV Total 174 ml # Voids 3 4 2 1 4 # Bowel Movements 0 0 0 Result Diagram: 04/03/17 0547 04/02/17 0559 Assessment and Plan Assessment and Plan Headache will order some Fioricet for her Will also order an Ambien for sleep. May try the Percocet if the headache persists although she does not like it. I am avoiding IV/IM narcotics as she is allergic to Dilaudid. Will also repeat her cbc and bmp in the am Kati Oliveros MD Apr 05, 2017 19:46
[2017-04-05 20:00] VITALS: BP 129/81; PULSE 73; RESP 18; TEMP 96.5; O2SAT 99
[2017-04-05] MEDS ORDERED: ACETAMIN 325 MG/BUTALBITAL 50 MG/CAFFEINE 40 MG TAB PO PRN (20:00)
[2017-04-05] MEDS ORDERED: ZOLPIDEM TARTRATE 5 MG TAB PO PRN (20:00)
[2017-04-06] VITALS: BP 127/58; PULSE 80; RESP 19; TEMP 97.5; O2SAT 98
[2017-04-06] MEDS: IBUPROFEN 600 MG TAB PO SCH ×3 (03:11→21:09)
[2017-04-06] MEDS: PIPERACIL-TAZO 3.375 GM PREMIX 50 ML IV SCH ×3 (03:14→21:06)
[2017-04-06] MEDS: ACETAMINOPHEN 1000 MG/100 ML VIAL IV SCH ×4 (03:16→21:10)
[2017-04-06] MEDS: VANCOMYCIN INJ 1,500 MG in SODIUM CHLORID 0.9% 500 ML INJ 500 ML IV SCH ×2 (05:25→18:29)
[2017-04-06] MEDS: LACTATED RINGER'S 1000 ML INJ 1,000 ML IV SCH ×3 (05:44→23:27)
[2017-04-06 07:50] VITALS: BP 127/57; PULSE 80; RESP 20; TEMP 97.4; O2SAT 96
[2017-04-06 08:27] LABS: AUTOMATED NEUTROPHIL # 7.1 TH/MM3 (1.8-7.7); BASOPHIL % 0.5 % (0.0-2.0); EOSINOPHIL # 0.2 TH/MM3 (0-0.4); EOSINOPHIL % 1.6 % (0.0-4.0); HEMATOCRIT 29.6 % (35.0-46.0); HEMO FLAGS DIFF FINAL; LYMPH % 21.9 % (9.0-44.0); LYMPHOCYTE # 2.3 TH/MM3 (1.0-4.8); MEAN CELL VOLUME 79.9 FL (80.0-100.0); MEAN CORPUSCULAR HEMOGLOBIN 26.3 PG (27.0-34.0); MEAN CORPUSCULAR HGB CONC 32.9 % (32.0-36.0); MONO % 7.2 % (0.0-8.0); NEUT % 68.8 % (16.0-70.0); PLATELET COUNT 420 TH/MM3 (150-450); WHITE BLOOD COUNT 10.3 TH/MM3 (4.0-11.0)
[2017-04-06 08:46] LABS: BICARBONATE 26.3 MEQ/L (21.0-32.0)
--- NOTE | 2017-04-06 08:46 | HHI.PR ---
Subjective Remarks My vulva was very sore last nite. No BM since Thursday Tolerating diet well Objective Vital Signs Date Time Temp Pulse Resp B/P Pulse Ox O2 Delivery O2 Flow Rate FiO2 04/06/17 03:50 16 04/06/17 03:50 16 04/06/17 00:00 97.5 80 19 127/58 98 04/05/17 23:56 16 04/05/17 20:00 96.5 73 18 129/81 99 04/05/17 16:00 74 16 125/71 97 04/05/17 13:00 96.1 71 15 110/59 99 04/05/17 09:30 96.2 79 16 111/67 99 I/O 04/05/17 04/05/17 04/05/17 04/06/17 04/06/17 04/06/17 07:00 15:00 23:00 07:00 15:00 23:00 Intake Total 654 ml 1000 ml 240 ml Balance 654 ml 1000 ml 240 ml Intake Oral 480 ml 1000 ml 240 ml IV Total 174 ml # Voids 1 4 1 # Bowel Movements 0 0 Result Diagram: 04/06/17 0620 04/02/17 0559 Objective Remarks Abd is soft and NT Vulva is still hard and it feels like there is a fluculent mass. It is less tender. Ext NO CCE Assessment and Plan Assessment and Plan Vulvar cellulitis resolving slowly I feel there may be a abscess present. Anemia will start fe later. Constipation will give some MOM Kait Oliveros MD Apr 06, 2017 08:46
[2017-04-06] MEDS: SODIUM CHLORIDE 0.9% FLUSH 5 ML FLUSH IV FLUSH SCH ×2 (09:00→21:00)
[2017-04-06 11:50] VITALS: BP 122/57; PULSE 79; RESP 20; TEMP 97; O2SAT 98
[2017-04-06] MEDS ORDERED: GADODIAMIDE PF 287 MG/ML 20 ML VIAL (for RAD MRI) IV ONE (14:02)
[2017-04-06] MEDS: DOCUSATE SODIUM 50 MG/SENNA 8.6 MG TAB PO SCH ×2 (14:32→21:08)
--- NOTE | 2017-04-06 14:38 | RADRPT ---
EXAM DATE/TIME: 04/06/2017 12:38 [facility] COMPARISON: CT ABDOMEN & PELVIS W CONTRAST, April 01, 2017, 3:16. INDICATIONS : Vulvar cellulitis. CONTRAST: 16 cc Omniscan (gadodiamide) IV MEDICAL HISTORY : Migraines, MRSA infection of right vulva. SURGICAL HISTORY : section. Left foot sx. ENCOUNTER: Initial ACUITY: 1 week PAIN SCORE: 5/10 LOCATION: Pelvis TECHNIQUE: Multiplanar, multisequence magnetic resonance imaging of the pelvis was performed. FINDINGS: The patient has labial/vulvar cellulitis on the right. MRI images of this only ar consistent with an inflammatory process confined to the right side of the vulva. This small 1 cm contained fluid collection is evident. There is no evidence for communicati on with the rectum. Perirectal tissues appear normal. There is no inguinal communication. There is no free fluid in the pelvis. I see nothing suggesting inflammatory bowel disease. There is a cyst associated with the right adnexal region of no consequence. IUD is in good position. CONCLUSION: Vulvar abscess containing a small 1 cm fluid collection confined to the vulva. There is inguinal adenopathy associated with this bilaterally. Brandon Louie MD FACR on April 06, 2017 at 13:59 Board Certified Radiologist. This report was verified electronically.
[2017-04-06 15:50] VITALS: BP 121/57; PULSE 73; RESP 20; TEMP 97.3; O2SAT 99
[2017-04-06 16:15] LABS: HEMOGLOBIN A1a 1.3 %; HEMOGLOBIN A1b 0.8 %; HEMOGLOBIN Ao 86.7 %; HEMOGLOBIN F 0.7 %; HEMOGLOBIN LA1C 1.3 %; HEMOGLOBIN P3 3.2 %
[2017-04-06 21:45] VITALS: BP 124/61; PULSE 71; RESP 16; TEMP 96.7; O2SAT 98
[2017-04-07 01:00] VITALS: BP 107/57; PULSE 62; RESP 16; TEMP 96.7; O2SAT 99
[2017-04-07] MEDS: ACETAMINOPHEN 1000 MG/100 ML VIAL IV SCH ×3 (03:48→15:00)
[2017-04-07] MEDS: PIPERACIL-TAZO 3.375 GM PREMIX 50 ML IV SCH ×2 (03:48→13:05)
[2017-04-07 04:00] VITALS: BP 99/57; PULSE 60; RESP 16; TEMP 96.5; O2SAT 98
[2017-04-07] MEDS: VANCOMYCIN INJ 1,500 MG in SODIUM CHLORID 0.9% 500 ML INJ 500 ML IV SCH ×2 (05:04→18:00)
[2017-04-07] MEDS: IBUPROFEN 600 MG TAB PO SCH ×2 (05:04→13:06)
[2017-04-07] MEDS ORDERED: IBUP-232 PO (07:48)
[2017-04-07] MEDS ORDERED: BACT800T5 PO (07:48)
[2017-04-07] MEDS ORDERED: SENN1TAB PO (07:48)
[2017-04-07 08:00] VITALS: BP 116/65; PULSE 72; RESP 16; TEMP 97; O2SAT 96
--- NOTE | 2017-04-07 08:07 | HHI.PR ---
Subjective Remarks POD#6 s/p I&D in OR for R vulvar cellulitis overnight feeling better, afebrile, pain controlled with motrin & tylenol, but does c/o of feeling slightly increased swelling of R vulva urinating well had BM yesterday eating well pain 2/10 Objective Vital Signs Date Time Temp Pulse Resp B/P Pulse Ox O2 Delivery O2 Flow Rate FiO2 04/07/17 06:04 17 04/07/17 04:15 18 04/07/17 04:00 96.5 60 16 99/57 98 04/07/17 01:00 96.7 62 16 107/57 99 04/06/17 21:45 96.7 71 16 124/61 98 04/06/17 15:50 97.3 73 20 121/57 99 04/06/17 11:50 97.0 79 20 122/57 98 I/O 04/06/17 04/06/17 04/06/17 04/07/17 04/07/17 04/07/17 07:00 15:00 23:00 07:00 15:00 23:00 Intake Total 240 ml 1180 ml 725 ml 240 ml Balance 240 ml 1180 ml 725 ml 240 ml Intake Oral 240 ml 1180 ml 240 ml IV Total 725 ml # Voids 1 5 1 # Bowel Movements 0 1 Result Diagram: 04/06/17 0620 04/06/17 0620 Imaging Last 48 hours Impressions Pelvis MRI 04/06/17 0000 Signed Impressions: Service Date/Time: Thursday, April 06, 2017 12:38 - CONCLUSION: Vulvar abscess containing a small 1 cm fluid collection confined to the vulva. There is inguinal adenopathy associated with this bilaterally. Brandon Louie MD FACR Objective Remarks A&O NAD CTA b/l no wheeze RRR no murmur abd soft ntnd +BS R vulva with 6cm length x 2 cm width x 1 cm depth firm area; yesterday no area of fluctuance, today 1 x 1 cm area inner labia with slight fluctuance; change from last PM ext no c/c/e x 4 Assessment and Plan Problem List: (1) Vulvar cellulitis Status: Acute (2) MRSA (methicillin resistant Staphylococcus aureus) infection Status: Acute Assessment and Plan 31 yo POD#6 s/p I&D in OR for R vulvar cellulitis, culture result +MRSA has been on IV antibiotics since admission and WBC normalized, afebrile >48h but this AM new small area of fluctuance, seen on MRI yesterday as well plan u/s guided drainage, if pt does well this evening will d/c home w 10d of Bactrim DS (sensitive on culture) would plan oupt f/u in office 2-3d after discharge for close monitoring will re-eval pt later today for possible d/c depending on procedure tolerance/ results Discharge Planning today or tmrw Cristiana Sykes MD Apr 07, 2017 08:06
[2017-04-07] MEDS: LACTATED RINGER'S 1000 ML INJ 1,000 ML IV SCH ×2 (08:09→16:51)
[2017-04-07] MEDS: SODIUM CHLORIDE 0.9% FLUSH 5 ML FLUSH IV FLUSH SCH (09:00)
[2017-04-07] MEDS: DOCUSATE SODIUM 50 MG/SENNA 8.6 MG TAB PO SCH (09:24)
[2017-04-07 11:58] VITALS: BP 144/98; PULSE 92; RESP 18; TEMP 98; O2SAT 99
[2017-04-07] MEDS: oxyCODONE/ACETAMINOPHEN 5 MG/325 MG TAB PO PRN (13:06)
--- NOTE | 2017-04-07 17:47 | HHI.PR ---
Subjective Remarks Patient feeling better, no F/C/N/V. Has completed 7 days of iv vanco Objective Vital Signs Date Time Temp Pulse Resp B/P Pulse Ox O2 Delivery O2 Flow Rate FiO2 04/07/17 11:58 98.0 92 18 144/98 99 04/07/17 08:00 97.0 72 16 116/65 96 04/07/17 06:04 17 04/07/17 04:15 18 04/07/17 04:00 96.5 60 16 99/57 98 04/07/17 01:00 96.7 62 16 107/57 99 04/06/17 21:45 96.7 71 16 124/61 98 I/O 04/06/17 04/06/17 04/06/17 04/07/17 04/07/17 04/07/17 07:00 15:00 23:00 07:00 15:00 23:00 Intake Total 240 ml 1180 ml 725 ml 240 ml Balance 240 ml 1180 ml 725 ml 240 ml Intake Oral 240 ml 1180 ml 240 ml IV Total 725 ml # Voids 1 5 1 # Bowel Movements 0 1 Result Diagram: 04/06/17 0620 04/06/17 0620 Assessment and Plan Assessment and Plan labial cellulitis,MRSA, S/P vancomycin x7 days, infection resolving. Plan discharge home after present dose of vancomycin complete. Discharge home on Bactrim Ds x14 days RtO this thursday Karthik Landry MD Apr 07, 2017 17:47
--- NOTE | 2017-04-07 17:48 | HHI.DCPOC ---
Discharge Care Plan Your Health Problems Are: Fever, temperature>100.4 Inability to take meds Inflammation/infection Nausea and/or vomiting Pelvic pain Report Symptoms to Your Doctor -Temperature above 100.5 degrees -Redness, of incision or excessive or foul smelling drainage -Unusual pain or calf pain -Increased vaginal bleeding -Painful or difficulty urinating -Feelings of extreme sadness or anxiety after 2 weeks Goals to Promote Your Health * To prevent worsening of your condition and complications * To maintain your health at the optimal level Directions to Meet Your Goals Take your medications as prescribed Follow your dietary instruction Follow activity as directed Ensure plenty of rest for recovery Drink fluids for hydration Keep your appointments as scheduled Take your immunizations and boosters as scheduled If your symptoms worsen call your PCP, if no PCP go to Urgent Care Center or Emergency Room Smoking is Dangerous to Your Health. Avoid second hand smoke Call the 24-hour crisis hotline for domestic abuse at Karthik Landry MD Apr 07, 2017 17:48
[2017-04-07] MEDS ORDERED: OXYC1TAB63 PO (17:52)
--- NOTE | 2017-04-08 09:03 | RADRPT ---
EXAM DATE/TIME: 04/07/2017 11:01 [facility] COMPARISON: No previous studies available for comparison. INDICATIONS : Abscess. MEDICAL HISTORY : Migraine. MRSA. Abscess. SURGICAL HISTORY : section. ENCOUNTER: Initial ACUITY: 2 weeks PAIN SCORE: 8/10 LOCATION: Right labia majora. FLUID: Total volume of 1 cc of cloudy, red fluid was removed. Fluid was sent to lab for ordered studies. TECHNIQUE: 1. Ultrasound guidance for needle aspiration. 2. Aspiration. The risks, benefits, and alternatives to ultrasound guided aspiration were explained to the patient i n detail including the risk of bleeding and infection. Written and verbal informed consent was obtai andreina. With the patient on the ultrasound table, ultrasound imaging was used to select the most appropriate approach for aspiration. Overlying skin was prepped and draped in the usual sterile fashion and with local anesthetic a dermatotomy was made with an 11 blade scalpel. A catheter was introduced into th e cavity and fluid was collected. FINDINGS: Under direct ultrasound visualization, a 19 gauge needle was placed into the fluid collection (in the right vulvar region). This contains a very thick somewhat oily material that looks like pus. 1 cc was removed, all that I c ould remove from a needle. This material was sent for gram stain and culture. CONCLUSION: Uncomplicated aspiration of a presumed right vulvar abscess. Brandon Louie MD FACR on April 08, 2017 at 8:07 Board Certified Radiologist. This report was verified electronically.
== END 2017-04-07 20:00 | disposition home or self-care (01) | DRG 747 ==
LOC: NEPC 23:28 → NEDA 04-01 03:40 → HOCA 04-01 05:33
PROVIDERS: ADMIT Obstetrics & Gynecology Maternal & Fetal Medicine; ATTEND Obstetrics & Gynecology Maternal & Fetal Medicine
PROC: 0U9M0ZZ Drainage of Vulva, Open Approach (ICD-10-PCS; principal; 2017-04-01 11:15)
DX: N76.4 Abscess of vulva (principal); B95.62 Methicillin resistant Staphylococcus aureus infection as the cause of diseases classified elsewhere; N76.2 Acute vulvitis; Z86.14 Personal history of Methicillin resistant Staphylococcus aureus infection; Z88.1 Allergy status to other antibiotic agents; Z88.5 Allergy status to narcotic agent; D64.9 Anemia, unspecified; R51 Headache; K59.00 Constipation, unspecified
CPT/HCPCS: 10160; 72197; 74177; 76937; 76942; 80048; 83036; 83605; 84703; 85025; 85610; 85730; 86403; 86703; 87015; 87040; 87070; 87102; 87116; 87186; 87205; 87206; 87641; 96374; 96375; A9579; J0131; J1885; J2250; J2405; J2543; J3010; J3370; J7030; J7040; J7050; J7120; Q9967